=== PATIENT | female | born 1965 | race Caucasian/White ===

== ENCOUNTER 2017-11-24 21:14 | Emergency (ER) | payer OTHER ==
[~2017-11-24] VITALS: Ht 154.9 cm; Wt 51.0 kg
[2017-11-24] MEDS ORDERED: LISINOP/HCTZ1 TAB PO (21:34)
[2017-11-24] MEDS ORDERED: PRAVASTATIN SOD20 MG PO (21:35)
[2017-11-24] MEDS ORDERED: FLEXERIL5 MG PO (23:22)
[2017-11-24 23:53] VITALS: BP 114/63
== END 2017-11-24 23:53 | disposition home or self-care (01) | DRG 552 ==
LOC: ED 21:14
DX: S16.1XXA Strain of muscle, fascia and tendon at neck level, initial encounter (principal); M25.511 Pain in right shoulder; R51 Headache; V43.02XA Car driver injured in collision with other type car in nontraffic accident, initial encounter; Y92.410 Unspecified street and highway as the place of occurrence of the external cause